=== PATIENT | female | born 1995 | race Caucasian/White ===

== ENCOUNTER 2018-11-03 11:02 | Emergency (ER) | payer OTHER ==
[~2018-11-03] VITALS: Ht 170.2 cm; Wt 92.5 kg
[2018-11-03 11:08] VITALS: BP 140/87
--- NOTE | 2018-11-03 11:12 | NUR ---
PT AMB TO ER BED 4 W/O ASST
--- NOTE | 2018-11-03 11:19 | NUR ---
23 Y FEMALE BIB SELF C/O DIZZINESS, SLIGHT HEADACHE, NAUSEA, WEAKNESS X4 DAYS. DENIES BLURRY VISION, TINGLING, OR NUMBNESS. NEURO INTACT- PUPILS MAINE. EQUAL ARM SPRIGGER. FACIAL SYMMETRY. VSS AT THIS TIME. PT AA0X4. BED IS DOWN, LOCKED, BED RAIL X 1, ERMD TO SEE PT. FAMILY HX OF DM. NO MEDS.
--- NOTE | 2018-11-03 11:25 | NUR ---
DR MAGALLANES AT PT BEDSIDE
--- NOTE | 2018-11-03 11:40 | NUR ---
CALLED LAB FOR BLOOD DRAW.
--- NOTE | 2018-11-03 12:32 | NUR ---
X-RAY AT BEDSIDE.
--- NOTE | 2018-11-03 12:35 | NUR ---
XRAY AT BEDSIDE
[2018-11-03 12:36] LABS: BASOPHILS # (AUTO) 0.1 K/uL (0.00-0.22); BASOPHILS % (AUTO) 1.2 % (0.0-2.0); EOSINOPHILS # (AUTO) 0.1 K/uL (0-0.4); EOSINOPHILS % (AUTO) 1.9 % (0.0-4.0); HEMATOCRIT 41.9 % (36-48); HEMOGLOBIN 14.3 g/dL (12.0-16.0); LYMPHOCYTES # (AUTO) 1.5 K/uL (2.5-16.5); LYMPHOCYTES % (AUTO) 19.1 % (20.5-51.1); MEAN CORPUSCULAR HEMOGLOBIN 31 pg (27-31); MEAN CORPUSCULAR HGB CONC 34 g/dL (33-37); MEAN CORPUSCULAR VOLUME 91.9 fL (80-94); MONOCYTES # (AUTO) 0.6 K/uL (0.8-1.0); MONOCYTES % (AUTO) 7.3 % (1.7-9.3); NEUTROPHILS # (AUTO) 5.4 K/uL (1.8-7.7); NEUTROPHILS % (AUTO) 70.5 % (42.2-75.2); PLATELET COUNT (AUTO) 309 K/uL (140-450); RED BLOOD CELL COUNT(AUTO) 4.56 MIL/uL (4.20-5.40); RED CELL DISTRIBUTION WIDTH 13.1 % (11.6-13.7); WHITE BLOOD COUNT (AUTO) 7.7 K/uL (4.8-10.8)
[2018-11-03 12:45] LABS: ANION GAP 14.3 (8-16); CARBON DIOXIDE 26.9 mmol/L (21-32); CREATININE 0.7 mg/dL (0.6-1.3); POTASSIUM 4.2 mmol/L (3.5-5.1)
--- NOTE | 2018-11-03 12:54 | NUR ---
VSS AT THIS TIME. PT AA0X4. PT CRYING BEDSIDE. STATES SHE IS HAVING ANXIETY BUT DOES NOT WISH FOR ANY MEDICATIONS AT THIS TIME.
[2018-11-03 12:59] LABS: ALBUMIN 4.1 g/dL (3.4-5.0); FREE T4 (FREE THYROXINE) 0.91 ng/dL (0.76-1.46); THYROID STIMULATING HORMONE 1.62 uIU/mL (0.34-3.74); TOTAL BILIRUBIN 0.4 mg/dL (0.0-1.0)
[2018-11-03 14:21] VITALS: BP 131/83
--- NOTE | 2018-11-03 14:21 | NUR ---
DR MAGALLANES RE-EVALUATING PT
--- NOTE | 2018-11-03 14:21 | NUR ---
Patient discharged with v/s stable. Written and verbal after care instructions given and explained. Patient verbalized understanding. Ambulatory with steady gait. All questions addressed prior to discharge. Advised to follow up with PMD REGARDING HYPERTENSION. PT GIVEN COPY OF LAB AND XRAY RESULTS.
== END 2018-11-03 14:21 | disposition home or self-care (01) ==
LOC: MED 11:02
DX: I10 Essential (primary) hypertension (principal); R42 Dizziness and giddiness; E11.9 Type 2 diabetes mellitus without complications; Z98.890 Other specified postprocedural states
CPT/HCPCS: 36415; 71045; 80053; 81002; 81025; 82550; 82553; 82948; 84439; 84443; 84484; 85025; 93005; 99284; Q0092